=== PATIENT | female | born 1990 | race Two or more races ===

== ENCOUNTER 2022-10-20 01:05 | Inpatient (IN) | payer OTHER ==
[~2022-10-20] VITALS: Ht 160 cm; Wt 87.5 kg
[2022-10-20] MEDS ORDERED: PRENATAL TABLE1 EAC1 PO (01:33)
== END 2022-10-24 14:08 | disposition home or self-care (01) | DRG 807 ==
LOC: OBS/DEL 01:05 → LDR 06:32 → OB/GYN 16:06
PROVIDERS: ADMIT Obstetrics & Gynecology; ATTEND Obstetrics & Gynecology
PROC: 10E0XZZ Delivery of Products of Conception, External Approach (ICD-10-PCS; principal; 2022-10-20)
PROC: 0KQM0ZZ Repair Perineum Muscle, Open Approach (ICD-10-PCS; 2022-10-20)
PROC: 0UQG7ZZ Repair Vagina, Via Natural or Artificial Opening (ICD-10-PCS; 2022-10-20)
PROC: 4A1HXCZ Monitoring of Products of Conception, Cardiac Rate, External Approach (ICD-10-PCS; 2022-10-20)
DX: O70.1 Second degree perineal laceration during delivery (principal); Z37.0 Single live birth; R52 Pain, unspecified; O90.89 Other complications of the puerperium, not elsewhere classified; Z3A.39 39 weeks gestation of pregnancy; Z20.822 Contact with and (suspected) exposure to COVID-19

== ENCOUNTER 2023-12-08 12:17 | Inpatient (IN) | payer OTHER ==
[~2023-12-08] VITALS: Ht 157.5 cm; Wt 3.6 kg
[~2023-12-08 12:17] MED LIST: PRENATAL TABLE1 EAC1 PO
[2023-12-23] MEDS ORDERED: OXYTOCIN 500 ML IV ONE (10:15)
[2023-12-23 11:21] LABS: HEMATOCRIT 31.5 % (36.0-45.00); HEMOGLOBIN 10.1 g/dL (12.0-15.00); MEAN CELL VOLUME 73.4 fL (80.00-100.00); MEAN CORPUSCULAR HEMOGLOBIN 23.4 pg (27.00-32.0); MEAN CORPUSCULAR HGB CONC 31.9 g/dl (32.0-36.0); PLATELET COUNT 200 K/uL (150-450); RED BLOOD COUNT 4.29 M/uL (4.00-6.00)
[2023-12-23 11:45] LABS: ALBUMIN 3.2 gm/dL (3.4-5.0); BILIRUBIN TOTAL 1.03 mg/dL (0.3-1.2); CALCIUM 9.1 mg/dL (8.5-10.1); CREATININE SERUM 0.46 mg/dL (0.55-1.02); GFR 156.44; GLOBULINA 4.4 G/DL (2.4-3.5); POTASSIUM 4.19 mEq/L (3.5-5.1); TOTAL PROTEIN 7.6 gm/dL (6.4-8.2)
[2023-12-23] MEDS ORDERED: RINGERS SOLUTION,LACTATED 1,000 ML IV SCH (11:45)
[2023-12-23] MEDS ORDERED: AMPICILLIN SODIUM 2,000 MG VIAL IV ONE (11:45)
[2023-12-23] MEDS ORDERED: FAMOTIDINE/PF 20 MG/2 ML VIAL IV PUSH ONE (11:45)
[2023-12-23 12:06] LABS: INR 0.94; PARTIAL THROMBOPLASTIN TIME 24.5 SECONDS (22.0-34.0); PROTHROMBIN TIME 9.9 SECONDS (9.0-11.5)
[2023-12-23] MEDS ORDERED: AMPICILLIN SODIUM 1,000 MG VIAL IV SCH (16:00)
[2023-12-23] MEDS ORDERED: CITRIC ACID/SODIUM CITRATE 30 ML BLIST.PACK PO SCH (16:45)
[2023-12-23] MEDS ORDERED: CEFAZOLIN SODIUM 1,000 MG VIAL IV SCH (16:45)
[2023-12-23] MEDS ORDERED: MORPHINE SULFATE 4 MG/ML CARTRIDGE IV SCH (17:00)
[2023-12-23] MEDS ORDERED: OXYTOCIN 1,000 ML IV NR (17:00)
[2023-12-23] MEDS ORDERED: KETOROLAC TROMETHAMINE 30 MG VIAL IV SCH (18:00)
[2023-12-23] MEDS ORDERED: ERYTHROMYCIN BASE 1 GM TUBE OP ONE (18:15)
[2023-12-23] MEDS ORDERED: OXYTOCIN 10 UNITS/ML VIAL IV ONE (18:15)
[2023-12-24] MEDS ORDERED: ACETAMINOPHEN 500 MG GEL..CAP PO SCH (06:00)
[2023-12-24 06:29] LABS: HEMATOCRIT 28.3 % (36.0-45.00); HEMOGLOBIN 9.2 g/dL (12.0-15.00); MEAN CELL VOLUME 72.8 fL (80.00-100.00); MEAN CORPUSCULAR HEMOGLOBIN 23.6 pg (27.00-32.0); MEAN CORPUSCULAR HGB CONC 32.4 g/dl (32.0-36.0); PLATELET COUNT 185 K/uL (150-450); RED BLOOD COUNT 3.89 M/uL (4.00-6.00); RED CELL DISTRIBUTION WIDTH 20.6 % (11.5-14.5)
[2023-12-24] MEDS ORDERED: PNV,CALCIUM 72/IRON/FOLIC ACID 1 TAB TABLET PO SCH (09:00)
[2023-12-24] MEDS ORDERED: SIMETHICONE 125 MG CAPSULE PO SCH (09:00)
[2023-12-24] MEDS ORDERED: DOCUSATE SODIUM 100MG CAP PO SCH (09:00)
[2023-12-24] MEDS ORDERED: GABAPENTIN 300 MG CAPSULE PO SCH (09:00)
[2023-12-24] MEDS ORDERED: IBUprofen 600 MG TABLET PO SCH (12:00)
== END 2023-12-25 13:37 | disposition home or self-care (01) | DRG 785 ==
LOC: LDR 12-23 09:39 → OB/GYN 12-23 17:11
PROVIDERS: Obstetrics & Gynecology Gynecology; ADMIT Obstetrics & Gynecology; ATTEND Obstetrics & Gynecology
PROC: 4A1HXCZ Monitoring of Products of Conception, Cardiac Rate, External Approach (ICD-10-PCS; 2023-12-23)
PROC: 10D00Z1 Extraction of Products of Conception, Low, Open Approach (ICD-10-PCS; principal; 2023-12-24)
PROC: 0UB70ZZ Excision of Bilateral Fallopian Tubes, Open Approach (ICD-10-PCS; 2023-12-24)
DX: O36.63X0 Maternal care for excessive fetal growth, third trimester, not applicable or unspecified (principal); Z3A.39 39 weeks gestation of pregnancy; Z37.0 Single live birth; Z30.2 Encounter for sterilization; Z20.822 Contact with and (suspected) exposure to COVID-19